=== PATIENT | female | born 1990 | race Caucasian/White ===

== ENCOUNTER → 2024-05-22 15:12 | Outpatient (CLI) | payer OTHER, SELFPAY | PROVIDERS: Family Provider Pediatrics; Visit Provider Physician Assistant Surgical | DX: Z51.89 Encounter for other specified aftercare (principal) | CPT/HCPCS: 87070; 87075; 87077; 87147; 87186; 87205 ==

== ENCOUNTER → 2024-05-30 12:58 | Outpatient (CLI) | payer OTHER, SELFPAY | LOC: WC 13:02 | PROVIDERS: Family Provider Pediatrics; Referring Provider Physician Assistant Surgical; Visit Provider Surgery | DX: L97.812 Non-pressure chronic ulcer of other part of right lower leg with fat layer exposed (principal); L08.9 Local infection of the skin and subcutaneous tissue, unspecified; R60.0 Localized edema | CPT/HCPCS: 11042; 11045; 99203; 99213 ==

== ENCOUNTER → 2024-06-06 14:58 | Outpatient (CLI) | payer OTHER, SELFPAY | LOC: WC 15:00 | PROVIDERS: Family Provider Pediatrics; Referring Provider Physician Assistant Surgical; Visit Provider Surgery | DX: A41.02 Sepsis due to Methicillin resistant Staphylococcus aureus (principal); S81.801A Unspecified open wound, right lower leg, initial encounter; R60.0 Localized edema | CPT/HCPCS: 11042; 11045 ==

== ENCOUNTER → 2024-06-27 11:35 | Outpatient (CLI) | payer OTHER, SELFPAY | PROVIDERS: Family Provider Pediatrics; Referring Provider Physician Assistant Surgical; Visit Provider Surgery | DX: L97.812 Non-pressure chronic ulcer of other part of right lower leg with fat layer exposed (principal); R60.0 Localized edema | CPT/HCPCS: 97597; 99213 ==